=== PATIENT | male | born 1985 | race Caucasian/White ===

== ENCOUNTER 2023-08-30 23:06 | Emergency (ER) | payer SELFPAY ==
[~2023-08-30] VITALS: Ht 170.2 cm; Wt 131.5 kg
[~2023-08-30 23:06] MED LIST: HYDR500C PO; WARF-83 PO; WARF7.5T23 PO
[2023-08-30 23:09] VITALS: BP 147/104; PULSE 85; RESP 20; TEMP 97.7; O2SAT 96
[2023-08-31] MEDS ORDERED: ALBUTEROL SULFATE/IPRATROPIU 3 ML SOL IH ONE ×2 (00:15→00:40)
[2023-08-31] MEDS ORDERED: ACETAMIN/CODEINE 120/12MG-5ML 5 ML UDC PO ONE (00:15)
[2023-08-31 00:17] LABS: FLU A ANTIGEN negative (NEGATIVE); FLU B ANTIGEN NEGATIVE (NEGATIVE)
[2023-08-31 00:20] VITALS: PULSE 67; RESP 18; O2SAT 97
[2023-08-31 01:38] VITALS: O2SAT 100
[2023-08-31] MEDS ORDERED: AZIT250T4 PO (01:41)
[2023-08-31] MEDS ORDERED: ROBAC PO (01:41)
[2023-08-31] MEDS ORDERED: ALBU0.0912 IH (01:41)
== END 2023-08-31 02:50 | disposition home or self-care (01) ==
LOC: MED 23:06
DX: J20.9 Acute bronchitis, unspecified (principal); Z20.822 Contact with and (suspected) exposure to COVID-19; E11.9 Type 2 diabetes mellitus without complications; Z86.73 Personal history of transient ischemic attack (TIA), and cerebral infarction without residual deficits; Z79.4 Long term (current) use of insulin; Z79.899 Other long term (current) drug therapy
CPT/HCPCS: 71045; 93005; 94640; 99285